=== PATIENT | male | born 1955 | race Caucasian/White ===

== ENCOUNTER → 2022-01-16 00:27 | Outpatient (CLI) | payer MEDICARE, BC, SELFPAY ==
--- NOTE | 2022-01-16 08:14 | DI.CT_ITS ---
Exam(s) CT NECK WO EXAM: CT NECK WO CLINICAL HISTORY: neck swelling,R22.1. TECHNIQUE: Imaging Protocol: Axial computed tomography images with coronal and sagittal reformatted images were created and reviewed CONTRAST MATERIAL: Intravenous: Omnipaque 350 Contrast volume:Noncontrast due to [employer] shortage . Oral: / no COMPARISON: No exams were available for comparison FINDINGS: Parotids/submandibular/thyroid gland: 12 by 9 millimeter nodule right parotid could represent a lymp h node. Fatty atrophy of left parotid. Lymphadenopathy: There are scattered lymph nodes seen along the level one to level three all measuri ng less than 8 mm in short axis diameter which are physiologic in nature. Carotids/Jugular: Within normal limits. Soft tissues: The floor the mouth is unremarkable. The epiglottis and vocal cords are within normal limits. Images through both lung apices are unremarkable. No skin or subcutaneous edema. Bones: Degenerative changes. Scoliosis. IMPRESSION: 12 millimeter nodule in right parotid may represent a lymph node versus Warthin's tumor versus benign mixed tumor. Biopsy could be considered. RADIATION DOSE DELIVERED: 914.9mGy.cm Total DLP DATA REPOSITORY: All CT scans at this facility are submitted to the National Radiology Data Registry (NRDR) Dose Index Registry (DIR) with the [employer] ([employer]). RADIATION OPTIMIZATION: All CT scans at this facility use at least one of these dose optimization te chniques: automated exposure control; mA and/or kV adjustment per patient size (includes targeted exa ms where dose is matched to clinical indication); or iterative reconstruction.
== END ==
PROVIDERS: PCP Family Medicine; Visit Provider Registered Nurse Maternal Newborn
DX: K11.8 Other diseases of salivary glands (principal); R22.1 Localized swelling, mass and lump, neck
CPT/HCPCS: 70490; 82565